=== PATIENT | male | born 1975 | race Caucasian/White ===

== ENCOUNTER 2017-04-02 14:28 | Emergency (ER) | payer MEDICAID ==
[~2017-04-02] VITALS: Ht 172.7 cm; Wt 90.7 kg
[~2017-04-02 14:28] MED LIST: FLEXERIL10 MG PO; IBU-8800 MG PO; LORTAB 5/500 501 TAB PO
--- OUTSIDE RECORDS SUMMARY | 2017-04-02 14:36 | External Medical Summary Rpt | CCD ---
Author Author [employer] Organization [employer] Address Unknown Phone Unavailable Purpose Continuity of Care Document - through 2016
--- OUTSIDE RECORDS SUMMARY | 2017-04-02 14:36 | External Medical Summary Rpt | CCD ---
Author Author , [facility] Address Unknown Phone [email or web address] Purpose Continuity of Care Document - through 2016
--- OUTSIDE RECORDS SUMMARY | 2017-04-02 14:36 | External Medical Summary Rpt | CCD ---
Author Author , [facility] Address Unknown Phone [email or web address] Purpose Continuity of Care Document - through 2016
--- OUTSIDE RECORDS SUMMARY | 2017-04-02 14:37 | External Medical Summary Rpt | CCD ---
Demographics Preferred Language Greenlandic Marital Status Unknown Sikh Affiliation Unknown Race Unknown Ethnic Group Unknown Author Author , [facility] Address Unknown Phone Immunization No patient found.
--- OUTSIDE RECORDS SUMMARY | 2017-04-02 14:37 | External Medical Summary Rpt ---
Author Author EZ Lopez, [employer] Organization [employer] Address Unknown Phone Unavailable
--- OUTSIDE RECORDS SUMMARY | 2017-04-02 14:37 | External Medical Summary Rpt | CCD ---
Demographics Preferred Language Tongan Marital Status Unknown Mormonism Affiliation Unknown Race Unknown Ethnic Group Unknown Author Author , [facility] Address Unknown Phone Immunization No patient found.
--- NOTE | 2017-04-02 15:07 | Urgent Treatment Center Report ---
History of Present Issue Date/Time Seen by Provider 04/02/17 1441 Visit Reason Pt arrived:Walked Presenting Problem:PT HAS WHEEZING AND COMPLAINS OF COUGHING THAT HAS CAUSED H/A AND RIB PAIN. SOA AT TIMES FOR 2 WEEKS Location if Accident: Onset of symptoms date/time:/ or onset unknown for:MEDICAL HX UNKNOWN Have you (or family members/close friends) recently traveled outside the [place]? N If Yes, where/when: Have you had exposure to infectious disease within the past month? TB? Other? Specify: c/o cough x "nearly 2 weeks. We all caught something similiar around the same time but I am not any better". Denies any initial head symptoms. "It was immediately in my chest". non productive cough that has been progressively getting worse. Intermittent wheezing but worse the last 2-3 days. SOA the last 2 days. "Coughing so much my ribs hurt". Hasn't taken or tried anything for symptoms. "I just figured it would eventually go away". + tobacco abuse. No fever, aches, chills. Source patient Exam Limitations no limitations ALLERGIES Coded Allergies: No Known Allergies (04/02/17) History Medical History General Angina: No DE: No Hypertension? No Hyperlipidemia? No CHF? No COPD? No Asthma? Yes CVA? No Seizures? No Diabetes? No GB Disease: No MRSA? No TB? No Cancer? No Immunization HX DT/Tetanus UNKNOWN Surgical Hx Previous Surgery?N Social History Smoking Hx Smoker: Current Every Day Smoker Tobacco: Yes Type Cigarettes Packs/day 1 1/2 - 2 Packs Alcohol Alcohol: No Review of Systems All Other Systems Reviewed and Negative Constitutional see HPI, denies malaise, denies weakness Eyes denies drainage ENT denies: ear pain, nose discharge, nose congestion, throat pain. Respiratory see HPI Cardiovascular denies chest pain, denies palpitations Gastrointestinal denies no symptoms reported Musculoskeletal see HPI Skin denies rash Psychiatric/Neurological headache (mild, intermittent, d/t cough) Physical Exam Vital Signs Vital Signs Date Time Temp Pulse Resp B/P Pulse O2 O2 Flow FiO2 Ox Delivery Rate 04/02 1441 97.9 90 22 130/95 95 General Appearance normal appearance, no apparent distress (other than frequent cough) Eye Exam - bilateral eye normal exam Ear, Nose, Throat normal ENT inspection Neck non-tender, supple Respiratory Status Yes: trachea midline, chest symmetrical, non productive cough (worse with deep breathing). No: respiratory distress, use of accessory muscles, pain on inspiration, pain on expiration. Lung Sounds bilateral: decreased breath sounds (throughout), rhonchi (faint, scattered throughout), wheezing (expiratory throughout). Cardiovascular regular rate/rhythm, no peripheral edema, no murmur Neurologic alert, oriented x 3 Skin normal color, warm/dry Lymphatic no adenopathy Medical Decision Making LABS/Meds/Orders Pt receiving controlled substance in ED? No Results/Orders Current Medication Orders Sig/Oswaldo Start time Last Medication Dose Route Stop Time Status Admin Albuterol/Ipratropium 0 .STK-MED ONE 04/02 1456 DC INH Methylprednisolone 0 .STK-MED ONE 04/02 1452 DC Sodium Succinate .ROUTE Albuterol/Ipratropium 3 ML ONCE ONE 04/02 1445 DC 04/02 INH 04/02 1446 1500 Methylprednisolone 125 MG ONCE ONE 04/02 1445 DC 04/02 Sodium Succinate IM 04/02 144 1458 Orders Procedure Date/time Status RT REQUEST DUONEB 04/02 1444 Active CHEST(2 VIEWS-NOT PORTABLE) 04/02 1439 Active XRAY/CT/US XRAY/CT/US XRAY chest XR interpretation by reviewed by me (w/ Dr. Chaudhry, ER ) Xray Results no acute findings, likely COPD and suspects hyperinflation Comment Dr. Chaudhry recommends steroids and antibiotics Progress UTC Progress Notes Date 04/02/17 Time 1519 Comment no rhonchi, expiratory wheezing slightly improved. Not as decreased throughout. Pt reports breathing "easier" since steroid injection and duoneb Departure Departure Time of Disposition 1516 Disposition DC Home or Self Care(routine) Clinical Impression Primary Impression: Acute bronchitis Qualifiers: Bronchitis organism: other organism Qualified Code: J20.8 - Acute bronchitis due to other specified organisms Secondary Impressions: Tobacco abuse Condition STABLE Referrals Hay REEEC,A.C. (Family) IMMEDIATELY for new or worsening symptoms AND in 2-3 days for repeat lung exam to ensure improvement. Patient Instructions DI for Acute Bronchitis, How to Quit Tobacco Products Additional Instructions * STOP SMOKING!!!! You have COPD as we discussed that will continue to get worse * start antibiotic today. Be sure to complete entire prescription even if feeling better. * Monitor Temp. Seek treatment if fever develops * humidifier/vaporizer/hot steamy shower * Inhaler every 4-6 hours as needed like we discussed. If unsure how to use it, ask pharmacist to demonstrate how. Should help open airways and improve cough, wheezing, shortness of breath. * Mucinex during the day for your cough and cough suppressant only at night. Be sure to drink lots of water. Insurance may not cover a prescription of mucinex. Might be cheaper to get 400mg tablets and take 2 tablets morning, midday and evening all with lots of water. * Promethazine DM cough syrup will cause drowsiness. Use it only at night. No driving, operating machinery or caring for small children after taking it. * Start steroid tomorrow as you had injection today. Helps with inflammation therefore, cough and wheezing. Follow directions on package. Rvwd side effects. Pt reports they have taken them before. Discharge Counseling Counseled pt/family regarding diagnosis, test results, medications/RX, home care, follow up needs Prescriptions Current Visit Scripts ALBUTEROL (Proventil Hfa Inhaler) 1-2 PUFF IH Q4-6H PRN PRN SOA, wheezing #1 CAN Azithromycin (Zithromycin (Z-IVON) 250MG Tab) 250 MG PO DAILY #6 TAB TAKE TWO (2) TABLETS ON DAY 1, THEN ONE (1) TABLET DAY #2 THRU #5 Prednisone (Prednisone 20MG) 20 MG PO BID #10 TAB PROMETHAZINE/DEXTROMETHORPHAN (Promethazine-Dm Syrup) 10 ML PO QHSP PRN cough #120 ML will cause drowsiness at 1521
[2017-04-02] MEDS ORDERED: ZITHROMAX Z PA250 MG PO (15:19)
[2017-04-02] MEDS ORDERED: PREDNISONE 20MG20 MG PO (15:19)
[2017-04-02] MEDS ORDERED: PROVENTIL0.09 MG/A1 IH (15:19)
[2017-04-02] MEDS ORDERED: PROMETHAZINE D118 ML PO (15:19)
[2017-04-02 15:28] VITALS: BP 130/95
--- NOTE | 2017-04-02 16:12 | RADIOLOGY REPORT PS360 ---
CHEST(2 VIEWS-NOT PORTABLE) HISTORY: Shortness of air SOA ORDERING PHYSICIAN: CAMELIA HERNADEZ APRN PATIENT AGE: 41 years COMPARISON: None available FINDINGS: The cardiomediastinal silhouette and pulmonary vascularity are within normal limits. The lungs are clear without infiltrates, suspicious nodules, or pleural effusions. No acute bony abnormalities. IMPRESSION: Negative chest, no acute finding
== END 2017-04-02 15:29 | disposition home or self-care (01) ==
LOC: UTC 14:28
DX: J20.8 Acute bronchitis due to other specified organisms (principal); F17.210 Nicotine dependence, cigarettes, uncomplicated; J45.909 Unspecified asthma, uncomplicated

== ENCOUNTER → 2017-05-02 | Outpatient (CLI) | payer MEDICAID ==
[~2017-05-02] MED LIST changes: +PREDNISONE 20MG20 MG PO; +PROMETHAZINE D118 ML PO; +PROVENTIL0.09 MG/A1 IH; +ZITHROMAX Z PA250 MG PO
== END ==
LOC: UTC.OUT 16:38
DX: Z23 Encounter for immunization (principal)